=== PATIENT | female | born 1965 | race Caucasian/White ===

== ENCOUNTER 2017-04-22 07:05 | Emergency (ER) | payer OTHER ==
[~2017-04-22] VITALS: Ht 167.6 cm; Wt 88.0 kg
[~2017-04-22 07:05] MED LIST: ALBUTEROL SULF8.5 GM IH; PRINIVIL10 MG PO; PROAIR HFA8.5 GM IH; SYMBICORT60 INHALA1 IH; ZOFRAN4 MG PO
[2017-04-22] MEDS ORDERED: OXYCODONE HCL10 MG PO (07:40)
[2017-04-22] MEDS ORDERED: FENTANYL1 EAC4 TD (07:41)
[2017-04-22] MEDS ORDERED: NARCAN4 MG NS (07:42)
[2017-04-22 08:26] VITALS: BP 146/99
[2017-04-22 08:38] LABS: CHLORIDE 107 mEq/L (99-109); POTASSIUM 3.5 mEq/L (3.7-5.4); SODIUM 139 mEq/L (136-147)
[2017-04-22 08:40] LABS: GLUCOSE 102 mg/dL (70-99)
[2017-04-22 08:41] LABS: ANION GAP 13 MEQ/L (2-14)
[2017-04-22 08:42] LABS: TOTAL BILIRUBIN 0.3 mg/dL (0.0-1.0)
[2017-04-22 08:44] LABS: ALKALINE PHOSPHATASE 84 IU/L (3-129); GFR ESTIMATE (CALCULATED) > 59 mL/min/
[2017-04-22 08:45] LABS: UREA NITROGEN (BUN) 8 mg/dL (9-23)
== END 2017-04-22 08:27 | disposition left against medical advice (07) ==
LOC: EME → EDBD 07:05 → EME 08:27
PROVIDERS: Nurse Practitioner Family
DX: T40.991A Poisoning by other psychodysleptics [hallucinogens], accidental (unintentional), initial encounter (principal); R41.82 Altered mental status, unspecified; F16.10 Hallucinogen abuse, uncomplicated; I10 Essential (primary) hypertension; J44.9 Chronic obstructive pulmonary disease, unspecified; J45.909 Unspecified asthma, uncomplicated; F17.200 Nicotine dependence, unspecified, uncomplicated
CPT/HCPCS: 80053; 81003; 85027; 99281; 99284